=== PATIENT | male | born 1980 | race Caucasian/White ===

== ENCOUNTER 2017-06-13 19:57 | Emergency (ER) | payer MEDICAID | END 2017-06-13 22:04 | disposition home or self-care (01) | LOC: FTE 19:57 | DX: S05.02XA Injury of conjunctiva and corneal abrasion without foreign body, left eye, initial encounter (principal); X58.XXXA Exposure to other specified factors, initial encounter; Y92.9 Unspecified place or not applicable | CPT/HCPCS: 99284; Z7502 ==